=== PATIENT | female | born 1960 | race Caucasian/White ===

== ENCOUNTER 2018-09-21 14:38 | Emergency (ER) | payer OTHER ==
[~2018-09-21] VITALS: Ht 154.9 cm; Wt 92.0 kg
[~2018-09-21 14:38] MED LIST: ASPI-831 PO; ATOR20TA65 PO
[2018-09-21 14:47] VITALS: Ht 154.9 cm; Wt 92.0 kg
[2018-09-22] MEDS ORDERED: morphine 2 MG INJ IV STA (00:02)
[2018-09-22] MEDS ORDERED: ONDANSETRON 4 MG INJ IV STA (00:02)
[2018-09-22] MEDS ORDERED: SOD CHLORIDE 0.9% 1,000 ML IV STA (00:02)
[2018-09-22] MEDS ORDERED: ONDA4TAB14 PO (03:14)
[2018-09-22] MEDS ORDERED: RANI150T35 PO (03:14)
[2018-09-22] MEDS ORDERED: CEPH-443 PO (03:14)
--- NOTE | 2018-09-22 03:20 | ERD ---
ER Documentation Chief Complaint Chief Complaint SENT BY PMD FOR LUQ PAIN/LEFT CHEEK SWELLING/LEFFT KNEE PAIN HPI This is a 58-year-old female comes in with epigastric and left upper quadrant abdominal pain for the past few days. Mild nausea but no vomiting. She says there is a burning-like sensation. Denies any fevers or chills. Denies any other current issues. Pain is mild to moderate intensity with no exacerbating or alleviating factors. ROS All systems reviewed and are negative except as per history of present illness. Medications Home Meds Active Scripts Ondansetron (Ondansetron Odt) 4 Mg Tab.rapdis, 4 MG PO Q6H PRN for NAUSEA AND/OR VOMITING, #10 TAB Prov:FELIX GIPSON 09/22/18 Ranitidine Hcl* (Zantac*) 150 Mg Tablet, 150 MG PO BID PRN for EPIGASTRIC PAIN, #30 TAB Prov:FELIX GIPSON 09/22/18 Cephalexin* (Keflex*) 500 Mg Capsule, 500 MG PO QID for 5 Days, CAP Prov:FELIX GIPSON 09/22/18 Discontinued Scripts Atorvastatin Calcium (Atorvastatin Calcium) 20 Mg Tablet, 20 MG PO HS for 30 Days, TAB 2 Refills Prov:ILIA HAMMOND 06/27/16 Aspirin (Aspirin) 81 Mg Chew, 81 MG PO DAILY for 30 Days, TAB 1 Refill Prov:ILIA HAMMOND. 06/27/16 Allergies Allergies: Coded Allergies: No Known Allergies (Verified Allergy, Unknown, 06/26/16) PMhx/Soc History of Surgery: No Anesthesia Reaction: No Hx Neurological Disorder: No Hx Respiratory Disorders: No Hx Cardiac Disorders: No Hx Psychiatric Problems: No Hx Miscellaneous Medical Probl: Yes (L sided weakness) Hx Alcohol Use: Yes (OCCASSIONAL BEER) Hx Substance Use: No Hx Tobacco Use: No Physical Exam Vitals Vital Signs Date Temp Pulse Resp B/P (MAP) Pulse Ox O2 O2 Flow FiO2 Time Delivery Rate 09/21/18 97.7 70 18 149/68 99 Room Air 23:34 (95) 09/21/18 97.6 63 18 156/67 98 Room Air 19:22 (96) 09/21/18 98.7 78 18 146/72 96 14:47 (96) Physical Exam Const: No acute distress Head: Atraumatic Eyes: Normal Conjunctiva ENT: Normal External Ears, Nose and Mouth. Neck: Full range of motion. No meningismus. Resp: Clear to auscultation bilaterally Cardio: Regular rate and rhythm, no murmurs Abd: Soft, non tender, non distended. Normal bowel sounds Skin: No petechiae or rashes Back: No midline or flank tenderness Ext: No cyanosis, or edema Neur: Awake and alert Psych: Normal Mood and Affect Result Diagram: 09/22/185 09/22/1814 Results 24 hrs Laboratory Tests Test 09/22/18 00:11 09/22/18 00:15 Urine Color YELLOW Urine Clarity CLOUDY Urine pH 5.0 Urine Specific [place] 1.029 Urine Ketones NEGATIVE mg/dL Urine Nitrite NEGATIVE mg/dL Urine Bilirubin NEGATIVE mg/dL Urine Urobilinogen NEGATIVE mg/dL Urine Leukocyte Esterase 3+ Jonathan/ul Urine Microscopic RBC 8 /HPF Urine Microscopic WBC 82 /HPF Urine Squamous Epithelial Cells FEW /HPF Urine Amorphous Crystals FEW /HPF Urine Bacteria FEW /HPF Urine Mucus FEW /HPF Urine Hemoglobin 1+ mg/dL Urine Glucose NEGATIVE mg/dL Urine Total Protein NEGATIVE mg/dl White Blood Count 6.4 10^3/ul Red Blood Count 4.60 10^6/ul Hemoglobin 12.9 g/dl Hematocrit 39.5 % Mean Corpuscular Volume 85.9 fl Mean Corpuscular Hemoglobin 28.0 pg Mean Corpuscular Hemoglobin Concent 32.7 g/dl Red Cell Distribution Width 14.0 % Platelet Count 213 10^3/UL Mean Platelet Volume 9.3 fl Immature Granulocytes % 0.300 % Neutrophils % 54.7 % Lymphocytes % 35.2 % Monocytes % 9.0 % Eosinophils % 0.5 % Basophils % 0.3 % Nucleated Red Blood Cells % 0.0 /100WBC Immature Granulocytes # 0.020 10^3/ul Neutrophils # 3.5 10^3/ul Lymphocytes # 2.2 10^3/ul Monocytes # 0.6 10^3/ul Eosinophils # 0.0 10^3/ul Basophils # 0.0 10^3/ul Nucleated Red Blood Cells # 0.0 10^3/ul Sodium Level 142 mmol/L Potassium Level 3.8 mmol/L Chloride Level 105 mmol/L Carbon Dioxide Level 29 mmol/L Anion Gap 8 Blood Urea Nitrogen 21 mg/dl Creatinine 0.80 mg/dl Est Glomerular Filtrat Rate mL/min > 60 mL/min Glucose Level 107 mg/dl Calcium Level 8.9 mg/dl Total Bilirubin 0.1 mg/dl Direct Bilirubin 0.00 mg/dl Indirect Bilirubin 0.1 mg/dl Aspartate Amino Transf (AST/SGOT) 25 IU/L Alanine Aminotransferase (ALT/SGPT) 30 IU/L Alkaline Phosphatase 58 IU/L Total Protein 7.1 g/dl Albumin 3.8 g/dl Globulin 3.30 g/dl Albumin/Globulin Ratio 1.15 Lipase 150 U/L Current Medications Medications Dose Sig/Divina Start Time Status Last (Trade) Ordered Route PRN Stop Time Admin Dose Reason Admin Sodium 1,000 ml @ Q1H STAT 09/22/18 DC 09/22/18 Chloride 1,000 mls/hr IV 00:02 09/22/18 00:36 01:01 Morphine 2 mg ONCE STAT 09/22/18 DC 09/22/18 Sulfate IV 00:02 09/22/18 00:37 (morphine) 00:04 Ondansetron 4 mg ONCE STAT 09/22/18 DC 09/22/18 HCl (Zofran IV 00:02 09/22/18 00:36 Inj) 00:04 Procedures/MDM Medical decision makin-year-old female has complained of epigastric abdominal pain consistent with a history of gastritis. No evidence of surgical abdomen. Clinically stable for outpatient management. Will be discharged home. Advised to follow-up in 8 hours for serial abdominal exams Departure Diagnosis: Primary Impression: Abdominal pain Abdominal location: epigastric Qualified Codes: R10.13 - Epigastric pain Condition: Stable Patient Instructions: Abdominal Pain FELIX GIPSON Sep 22, 2018 03:20
[2018-09-22 05:58] VITALS: BP 121/67; PULSE 60; RESP 12
== END 2018-09-22 06:01 | disposition home or self-care (01) ==
LOC: E/R 14:38
DX: R10.13 Epigastric pain (principal); R40.2142 Coma scale, eyes open, spontaneous, at arrival to emergency department; R40.2362 Coma scale, best motor response, obeys commands, at arrival to emergency department; R40.2252 Coma scale, best verbal response, oriented, at arrival to emergency department; R11.0 Nausea; Z79.82 Long term (current) use of aspirin
CPT/HCPCS: 36415; 71045; 74176; 80053; 81001; 83690; 85025; 96374; 96375; J2270; J2405; J7030; Z7502

== ENCOUNTER 2018-12-02 16:26 | Emergency (ER) | payer OTHER ==
[~2018-12-02] VITALS: Ht 165.1 cm; Wt 92.8 kg
[~2018-12-02 16:26] MED LIST changes: -ASPI-831 PO; -ATOR20TA65 PO; +CEPH-443 PO; +ONDA4TAB14 PO; +RANI150T35 PO
[2018-12-02 16:32] VITALS: Ht 165.1 cm; Wt 92.8 kg
[2018-12-02] MEDS ORDERED: D-ME473S2 PO (21:48)
[2018-12-02] MEDS ORDERED: AZIT250T PO (21:59)
[2018-12-02] MEDS ORDERED: BENZ-6 PO (21:59)
[2018-12-02 22:07] VITALS: BP 134/61; PULSE 68; RESP 20
--- NOTE | 2018-12-02 22:07 | ERD ---
ER Documentation Chief Complaint Chief Complaint Complains of a sore throat x 3 days HPI Patient is a 58-year-old female with a past medical history of hypertension, CVA, presents the ER for concerns of throat pain, tactile fevers, cough and sore throat for the last 5 days. Patient states she has had tactile fevers. Patient reports taking [id number] medications. Patient last took Tylenol at 10 AM this morning. Patient states her cough is productive in nature. She denies any hemoptysis. Patient denies any chest pain, shortness of breath, left upper extremity pain, diaphoresis or LOC. Patient does admit to generalized body aches. She denies any abdominal pain, nausea, vomiting or diarrhea. Patient denies any recent travel. No sick contacts. Patient denies history of COPD or CHF. ROS All systems reviewed and are negative except as per history of present illness. Medications Home Meds Active Scripts Azithromycin* (Zithromax*) 250 Mg Tablet, 250 MG PO .ZPACK DIRECTED, #6 TAB TAKE 500 MG (2 TABS) THE FIRST DAY THEN 250 MG (1 TAB) DAYS 2-5 Prov:JOSE LEWIS PA-C 12/02/18 Benzonatate* (Tessalon Perle*) 100 Mg Capsule, 100 MG PO Q8H PRN for COUGH, #20 CAP Prov:JOSE LEWIS PA-C 12/02/18 Dextromethorphan Hb-Promethazine Hcl* (Promethazine DM* Syrup) 473 Ml Syrup, 5 ML PO Q6 PRN for COUGH, #4 OZ Prov:JOSE LEWIS PA-C 12/02/18 Ondansetron (Ondansetron Odt) 4 Mg Tab.rapdis, 4 MG PO Q6H PRN for NAUSEA AND/OR VOMITING, #10 TAB Prov:FELIX GIPSON 09/22/18 Ranitidine Hcl* (Zantac*) 150 Mg Tablet, 150 MG PO BID PRN for EPIGASTRIC PAIN, #30 TAB Prov:FELIX GIPSON 09/22/18 Cephalexin* (Keflex*) 500 Mg Capsule, 500 MG PO QID for 5 Days, CAP Prov:FELIX GIPSON 09/22/18 Allergies Allergies: Coded Allergies: No Known Allergies (Verified Allergy, Unknown, 12/02/18) PMhx/Soc History of Surgery: Yes (Bilat shoulders) Anesthesia Reaction: No Hx Neurological Disorder: Yes (CVA 2015) Hx Respiratory Disorders: No Hx Cardiac Disorders: Yes (HTN) Hx Psychiatric Problems: No Hx Miscellaneous Medical Probl: Yes (CVA) Hx Alcohol Use: Yes (OCCASSIONAL BEER) Hx Substance Use: No Hx Tobacco Use: No Smoking Status: Never smoker FmHx Family History: No diabetes Physical Exam Vitals Vital Signs Date Temp Pulse Resp B/P (MAP) Pulse Ox O2 O2 Flow FiO2 Time Delivery Rate 12/02/18 98.3 71 20 145/65 96 16:32 (91) Physical Exam GENERAL: Well-developed, well-nourished female. Appears in no acute distress. Speaking in full sentences. HEAD: Normocephalic, atraumatic. No deformities or ecchymosis. EYE: Pupils equal, round, and reactive to light. EOMs intact. No conjunctival erythema. No eye discharge. ENT: External ear without any masses or tenderness. Auditory canals clear bilaterally. TM visualized bilaterally, non-erythematous, non-bulging. Nasal mucosa pink with no discharge. Oropharynx is pink without any tonsillar erythema or exudates. No uvula deviation. No kissing tonsils. NECK: Supple. No meningismus. Normal ROM of the neck. LUNG: Coarse breath sounds. No abdominal retractions, no nasal flaring, no tripoding. HEART: Regular rate and rhythm. No murmurs, rubs or gallops. EXTREMITES: Equal pulses bilaterally. No peripheral clubbing, cyanosis or edema. No unilateral leg swelling. No pitting edema noted bilaterally. NEUROLOGIC: Alert and oriented to person, place and time. Moving all four extremities. 5/5 strength in all extremities. Normal speech. Steady gait. SKIN: Normal color. Warm and dry. No rashes or lesions. Procedures/MDM ED COURSE: The patient was stable throughout ED course. I kept the patient and/or family informed of laboratory and diagnostic imaging results throughout the ED course. DIAGNOSTIC IMAGING: Read by radiologist. DIAGNOSTIC IMAGING REPORT Patient: ALEXANDRA GARCIA : 1960 Age: 58 Sex: F MR #: [id number] [facility] #: [id number] DOS: 12/02/182009 Ordering MD: JOSE LEWIS PA-C Location: FT Room/Bed: PROCEDURE: XR Chest. CLINICAL INDICATION: Cough TECHNIQUE: Single portable view of the chest was obtained COMPARISON: CHEST 09/22/2018 FINDINGS: The heart is enlarged. There is a mild patchy left lower lobe infiltrate versus atelectasis. There is no pleural effusion or pneumothorax. RPTAT: AA IMPRESSION: Mild Cardiomegaly. Mild patchy left lower lobe infiltrate versus atelectasis. .Saul Martinez MD, MD Date Time Electronically viewed and signed by .Saul Martinez MD, MD on 12/02/2018 21:06 .S/ CC: JOSE LEWIS PA-C [phone] PROCEDURES: None. MEDICAL DECISION MAKING: This this is a 58-year-old female presents the ER for concerns of v throat pain, tactile fevers, cough and sore throat for last 5 days. Ital signs were reviewed. Patient was afebrile. Patient was not hypoxic. ENT exam was normal. Lung exam did reveal coarse breath sounds. Patient had no abdominal scars, nasal flaring, no tripoding. Chest x-ray was obtained and showed mild cardiomegaly. Mild patchy left lower lobe infiltrate versus atelectasis noted. Given that patient has had a cough and tactile fevers for the last 5 days I do have concerns of pneumonia. Patient will be given azithromycin. Low suspicion for CHF, TB, meningitis, sinusitis, otitis externa, acute otitis media, strep pharyngitis, epiglottitis or peritonsillar abscess. Low suspicion for PE. Pa tient was nontoxic, [id number] prior t patient was given copy of chest x- ray advised to follow-up with primary care physician for further management of her chest x-ray findings. Repeat chest x-ray advised in 1 week. O discharge. PRESCRIPTIONS: Azithromycin, Tessalon Perles, promethazine DM cough syrup DISCHARGE: At this time, patient is stable for discharge and outpatient management. Supportive therapies such as OTC throat lozenges, salt water gurgles, popsicles and jello discussed. I have instructed the patient to follow-up with his/her primary care physician in 1-2 days. I have instructed the patient to promptly return to the ER for any new or worsening symptoms including increased pain, swelling, fever, nausea, vomiting, weakness or difficulty breathing. The patient and/or family expressed understanding of and agreement with this plan. All questions were answered. Home care instructions were provided. Disclaimer: Inadvertent spelling and grammatical errors are likely due to EHR/dictation software use and do not reflect on the overall quality of patient care. Also, please note that the electronic time recorded on this note does not necessarily reflect the actual time of the patient encounter. Departure Diagnosis: Primary Impression: Pneumonia Pneumonia type: due to unspecified organism Laterality: unspecified laterality Lung location: unspecified part of lung Qualified Codes: J18.9 - Pneumonia, unspecified organism Additional Impression: Pharyngitis Pharyngitis/tonsillitis etiology: unspecified etiology Qualified Codes: J02.9 - Acute pharyngitis, unspecified Condition: Stable Patient Instructions: Pneumonia (Adult) Referrals: [facility] YOU HAVE RECEIVED A MEDICAL SCREENING EXAM AND THE RESULTS INDICATE THAT YOU DO NOT HAVE A CONDITION THAT REQUIRES URGENT TREATMENT IN THE EMERGENCY DEPARTMENT. FURTHER EVALUATION AND TREATMENT OF YOUR CONDITION CAN WAIT UNTIL YOU ARE SEEN IN YOUR DOCTORS OFFICE WITHIN THE NEXT 1-2 DAYS. IT IS YOUR RESPONSIBILITY TO MAKE AN APPOINTMENT FOR FOLOW-UP CARE. IF YOU HAVE A PRIMARY DOCTOR --you should call your primary doctor and schedule an appointment IF YOU DO NOT HAVE A PRIMARY DOCTOR YOU CAN CALL OUR PHYSICIAN REFERRAL HOTLINE AT IF YOU CAN NOT AFFORD TO SEE A PHYSICIAN YOU CAN CHOSE FROM THE FOLLOWING [facility] [address] [facility] [address] [facility]. [facility] [address] [facility]. [facility] [address] [facility]. [facility]. [facility]. [address] [facility]. [facility] YOU HAVE RECEIVED A MEDICAL SCREENING EXAM AND THE RESULTS INDICATE THAT YOU DO NOT HAVE A CONDITION THAT REQUIRES URGENT TREATMENT IN THE EMERGENCY DEPARTMENT. FURTHER EVALUATION AND TREATMENT OF YOUR CONDITION CAN WAIT UNTIL YOU ARE SEEN IN YOUR DOCTORS OFFICE WITHIN THE NEXT 1-2 DAYS. IT IS YOUR RESPONSIBILITY TO MAKE AN APPOINTMENT FOR FOLOW-UP CARE. IF YOU HAVE A PRIMARY DOCTOR --you should call your primary doctor and schedule and appointment IF YOU DO NOT HAVE A PRIMARY DOCTOR YOU CAN CALL OUR PHYSICIAN REFERRAL HOTLINE AT . IF YOU CAN NOT AFFORD TO SEE A PHYSICIAN YOU CAN CHOSE FROM THE FOLLOWING [facility]: [facility] [address] [place] [address] [facility] [address] [place], [place] [id number] [place] [address] [address] [place] [address] [facility] Additional Instructions: Call your primary care doctor TOMORROW for an appointment during the next 1-2 days.See the doctor sooner or return here if your condition worsens before your appointment time. JOSE LEWIS PA-C Dec 02, 2018 22:07
== END 2018-12-02 22:08 | disposition home or self-care (01) ==
LOC: FTE 16:26
DX: J18.9 Pneumonia, unspecified organism (principal); I10 Essential (primary) hypertension; Z86.73 Personal history of transient ischemic attack (TIA), and cerebral infarction without residual deficits
CPT/HCPCS: 71045; Z7502